=== PATIENT | male | born 2000 | race Caucasian/White ===

== ENCOUNTER 2020-08-22 08:53 | Emergency (ER) | payer BC, OTHER ==
[~2020-08-22] VITALS: Ht 188 cm; Wt 76.3 kg
[2020-08-22 09:14] VITALS: BP 132/71
[2020-08-22] MEDS ORDERED: LIDOCAINE 2%/EPI 1:100,000 20 ML VIAL. IJ ONE (09:15)
--- NOTE | 2020-08-22 09:51 | PHYS DOC ---
Past History Past Medical History: No Pertinent History Past Surgical History: No Surgical History Alcohol Use: Rarely General Adult EDM: Chief Complaint: LACERATION/AVULSION HPI: HPI: Patient is a 19-year-old male coming in for laceration to left volar wrist. Patient states he was carrying some metatarsal down his arm and cut his wrist. Last tetanus 2 years ago. No other injuries, otherwise been well without any significant medical history. Review of Systems: Review of Systems: All other systems within normal limits except for as noted in the HPI Current Medications: Current Meds: Current Medications Medications (Trade) Dose Ordered Sig/Orb Start Time Stop Time Status Last Admin Dose Admin Lidocaine/ Epinephrine (Xylocaine 2%-Epi 1:100,000) 20 ml 1X ONCE 08/22/20 09:15 08/22/20 09:16 DC Allergies: Allergies: Allergies Coded Allergies Type Severity Reaction Last Updated Verified No Known Drug Allergies 08/22/20 No Physical Exam: PE: Constitutional: Well developed, well nourished, no acute distress, non-toxic appearance. [] HENT: Normocephalic, atraumatic, bilateral external ears normal, nose normal. [] Eyes: PERRLA, conjunctiva normal, no discharge. [] Neck: No rigidity, supple, no stridor. [] Cardiovascular: Regular rate and rhythm, brisk cap refill [] Lungs & Thorax: Non labored symmetric respirations, no tachypnea or respiratory distress [] Abdomen: Soft, nondistended. Skin: Warm, dry, no erythema, no rash. Centimeter laceration to ulnar radial aspect of left wrist. [] Back: Unremarkable Extremities: No deformities, range of motion grossly intact, no lower extremity edema. Flexor and extensor tendons intact. [] Neurologic: Alert and oriented X 3, no focal deficits noted. No sensory deficits [] Psychologic: Affect normal, judgement normal, mood normal. [] Current Patient Data: Vital Signs: Vital Signs Date Time Temp Pulse Resp B/P (MAP) Pulse Ox O2 Delivery O2 Flow Rate FiO2 08/22/20 09:14 98.1 68 16 132/71 (91) 99 Room Air EKG: EKG: [] Radiology/Procedures: Radiology/Procedures: Patient was prepped and draped in normal fashion, wound irrigated and cleansed with normal saline. The 4 cm wound was anesthetized with lidocaine 2% with epi. Depth of wound was examined and no foreign bodies found. Wound was approximated with 3-0 Ethilon suture and a simple interrupted pattern. 6 sutures placed without complication. Wound was [] dressed a nonadherent bandage [] Heart Score: C/O Chest Pain: No Risk Factors: Risk Factors: DM, Current or recent (<one month) smoker, HTN, HLP, family history of CAD, obesity. Risk Scores: Score 0 - 3: 2.5% MACE over next 6 weeks - Discharge Home Score 4 - 6: 20.3% MACE over next 6 weeks - Admit for Clinical Observation Score 7 - 10: 72.7% MACE over next 6 weeks - Early Invasive Strategies Course & Med Decision Making: Course & Med Decision Making Pertinent Labs and Imaging studies reviewed. (See chart for details) [] Dragon Disclaimer: Dragon Disclaimer: This electronic medical record was generated, in whole or in part, using a voice recognition dictation system. Departure Departure: Impression: Primary Impression: Laceration of wrist, left Disposition: 01 HOME / SELF CARE / HOMELESS Condition: STABLE Referrals: ОЛЕГ KEARNEY MD (PCP) Patient Instructions: Sutured Wound Care Additional Instructions: Have stitches removed in 7 to 10 days. CHECO CARABALLO MD Aug 22, 2020 09:51
== END 2020-08-22 10:00 | disposition home or self-care (01) ==
LOC: ER 08:53
DX: S61.512A Laceration without foreign body of left wrist, initial encounter (principal); W26.8XXA Contact with other sharp object(s), not elsewhere classified, initial encounter; Y93.89 Activity, other specified; Y92.89 Other specified places as the place of occurrence of the external cause; Y99.8 Other external cause status
CPT/HCPCS: 12002; 99282